=== PATIENT | male | born 1965 | race Caucasian/White ===

== ENCOUNTER 2019-02-01 20:26 | Emergency (ER) | payer BC, SELFPAY ==
[2019-02-01] VITALS (15 sets, daily range): BP systolic 136; BP diastolic 73; PULSE 71–79; RESP 4–36; TEMP 37.4; O2SAT 91–97
[2019-02-01] MEDS: Albuterol/Ipratropium 3 ML UPD VIAL (20:25)
--- NOTE | 2019-02-01 20:34 | ED.GENADUL_ITS ---
Discharge Plan Disposition Patient Disposition: HOME Condition: Improving Discharge Details Chief Complaint: SOB Clinical Impression: COPD with acute exacerbation, Anxiety Primary Care Provider: Ileana Crouch ED Provider: Ginna Cowart Home Meds and New Rx's Prescriptions: New prednisone 20 mg tablet See Rx Instructions .ROUTE .COMPLEX Qty: 12 RF: 0 doxycycline hyclate 100 mg tablet 100 mg PO BID 5 Days Qty: 10 RF: 0 Continued ibuprofen 800 mg tablet 800 mg PO PRN PRNRF: 0 gabapentin 100 mg capsule 100 mg PO PRN RF: 0 lorazepam 0.5 MG tablet 0.5 mg PO BID MDD 2 PRNQty: 10 RF: 0 hydrocodone-acetaminophen 5-325 mg Tablet 1 - 2 tab PO DIRECTED RF: 0 Discharge Instructions Instructions: COPD (Chronic Obstructive Pulmonary Disease) (ED), Anxiety (ED) Additional Instructions: Use the albuterol inhaler as needed and directed for shortness of breath or wheezing. Take the steroids until finished. If you have no relief in symptoms or worsening of symptoms including cough or development of fever, you may start the antibiotics. Call your primary care doctor tomorrow morning to schedule a follow-up appointment for reevaluation and for recheck of your platelets which were noted to be low today on your blood work. Return immediately to the emergency department with any worsening or new concerning symptoms. Return immediately to the emergency department with any worsening or new concerning symptoms per Discharge Data Discharge Physician: Ginna Cowart Medical Decision Making 53-year-old male with a history of COPD and anxiety who presents the ED with a complaint of shortness of breath and cough for the past week, worse over the past few hours. He admits to significant stress at home as he is going through a divorce and about to lose his son. He does admit to chest pain but states this is chronic and daily for several years and no different than usual at this time. EMS noted an oxygen saturation of 100% on room air and normal respiratory rate. He was given a DuoNeb en route. On arrival to ED, patient appears significantly anxious and hyperventilating. Oxygen saturation 100% on room air. Respiratory rate 20s to 30s. Scattered wheezing throughout with mildly diminished breath sounds. No lower extremity edema. No rales or crackles. Suspect likely acute COPD exacerbation in association with anxiety. Considering patient's age and history, will do a cardiac work-up, chest x-ray, DuoNeb and Solu-Medrol as well as a dose of Ativan and reassess. 2114 -- Pt states he feels no better. Breath sounds note improved air movement but with increasing wheezing. Oxygen saturation 97% on room air. Respiratory rate 20s. Patient appears significantly anxious. He states that few days ago he ran out of his Ativan which had been prescribed prn in the past and [place] which he was taking for his left elbow surgery. We will give another dose of Ativan and a 7.5 mg neb and reassess. 2139 -- Pt resting comfortably and denying any shortness of breath at this time after ativan. Patient not yet given 7.5 mg neb. Patient declining any further nebs at this time. Oxygen saturation 95% on room air. 2199 --labs and imaging reviewed. Normal white blood cell count. Platelets 88. Platelets from 124 in 2013. Anion gap 16. Patient given 1 L IV fluids. Troponin negative. BNP 82. Chest x-ray notes pulmonary interstitial changes which could be an atypical infection. Patient still asleep on reevaluation and appears relaxed and comfortable. Denies any complaints of chest pain or shortness of breath at this time. Patient has no complaints of fever with a normal white blood cell count. As he is a smoker with a history of COPD, will send home with a prescription for doxycycline to start if his symptoms do not improve or worsen. We will send him with a prescription for prednisone as well as albuterol inhaler. He is instructed to follow-up with his primary care doctor for reevaluation and to recheck his platelets and to consider whether he needs any further Ativan prescription for his anxiety. Will place patient on care management list to assist patient with any medication issues as he states his insurance did not cover his albuterol inhaler given from the ER in the past. Medical Records Medical records reviewed: Yes I reviewed the patient's medical records. Imaging Data Radiologic Study: Radiologist's impression: XR Chest, 2 Views EXAM DATE/TIME: 02/01/2019 9:13 PM FINDINGS: Lungs: Apical bullous disease. Diffuse interstitial prominence. Pleural space: Unremarkable. No evidence of pneumothorax. Heart/Mediastinum: Unremarkable. Heart size within normal limits for technique. Bones/joints: Old thoracic spine compression fracture. IMPRESSION: Pulmonary interstitial changes could be pulmonary edema or atypical infection. There are some bullous emphysematous changes. Lab Data Lab results reviewed: Yes I reviewed the patient's lab results. Laboratory Tests Range/Units 02/01/19 02/01/19 02/01/19 20:30 20:30 20:30 WBC Cancelled RBC Cancelled Hgb Cancelled Hct Cancelled MCV Cancelled MCH Cancelled MCHC Cancelled RDW Cancelled Plt Count Cancelled MPV Cancelled Immature Gran % Cancelled Neutrophils % Cancelled Band Neutrophils % Cancelled Lymphocytes % Cancelled Atypical Lymphs % Cancelled Monocytes % Cancelled Eosinophils % Cancelled Basophils % Cancelled Metamyelocytes % Cancelled Myelocytes % Cancelled Promyelocytes % Cancelled Absolute Neutrophils Cancelled Absolute Lymphocytes Cancelled Absolute Monocytes Cancelled Absolute Eosinophils Cancelled Absolute Basophils Cancelled Nucleated RBCs Cancelled Differential Comment Cancelled Other Cell Type Cancelled RBC Morphology Cancelled Polychromasia Cancelled Hypochromasia Cancelled Poikilocytosis Cancelled Basophilic Stippling Cancelled Anisocytosis Cancelled Microcytosis Cancelled Macrocytosis Cancelled Spherocytes Cancelled Target Cells Cancelled Tear Drop Cells Cancelled Ovalocytes Cancelled Stomatocytes Cancelled [place] Bodies Cancelled Stumpy Point Cells Cancelled Acanthocytes (Spur) Cancelled Schistocytes Cancelled Sodium (136-145) mmol/L 138 Potassium (3.5-5.1) mmol/L 4.0 Chloride (98-107) mmol/L 100 Carbon Dioxide (21.0-32.0) mmol/L 22.0 Anion Gap (3-11) mmol/L 16.0 H BUN (7-18) mg/dL 11 Creatinine (0.70-1.30) mg/dL 0.90 Estimated GFR/1.73 m2 (mL/min/1.73m2) >= 60.00 Glucose (70-100) mg/dL 83 Calcium (8.5-10.1) mg/dL 9.3 Magnesium (1.8-2.4) mg/dL 2.1 Total Bilirubin (0.2-1.0) mg/dL 1.2 H AST (15-37) U/L 17 ALT (12-78) U/L 16 Alkaline Phosphatase (46-116) U/L 94 Troponin I (0.00-0.06) ng/mL < 0.02 NT-Pro-B Natriuret Pep ( - 299) pg/mL 82 Total Protein (6.4-8.2) g/dL 7.7 Albumin (3.4-5.0) g/dL 4.0 Range/Units 02/01/19 21:23 WBC 8.09 RBC 4.95 Hgb 16.0 Hct 45.0 MCV 90.9 MCH 32.3 MCHC 35.6 RDW 12.9 Plt Count 88 L MPV 11.0 Immature Gran % 0.2 Neutrophils % 51.7 Band Neutrophils % Lymphocytes % 40.8 Atypical Lymphs % Monocytes % 5.7 Eosinophils % 1.0 Basophils % 0.6 Metamyelocytes % Myelocytes % Promyelocytes % Absolute Neutrophils 4.18 Absolute Lymphocytes 3.30 Absolute Monocytes 0.46 Absolute Eosinophils 0.08 Absolute Basophils 0.05 Nucleated RBCs Differential Comment Other Cell Type RBC Morphology Polychromasia Hypochromasia Poikilocytosis Basophilic Stippling Anisocytosis Microcytosis Macrocytosis Spherocytes Target Cells Tear Drop Cells Ovalocytes Stomatocytes [place] Bodies Jay Cells Acanthocytes (Spur) Schistocytes Sodium (136-145) mmol/L Potassium (3.5-5.1) mmol/L Chloride (98-107) mmol/L Carbon Dioxide (21.0-32.0) mmol/L Anion Gap (3-11) mmol/L BUN (7-18) mg/dL Creatinine (0.70-1.30) mg/dL Estimated GFR/1.73 m2 (mL/min/1.73m2) Glucose (70-100) mg/dL Calcium (8.5-10.1) mg/dL Magnesium (1.8-2.4) mg/dL Total Bilirubin (0.2-1.0) mg/dL AST (15-37) U/L ALT (12-78) U/L Alkaline Phosphatase (46-116) U/L Troponin I (0.00-0.06) ng/mL NT-Pro-B Natriuret Pep ( - 299) pg/mL Total Protein (6.4-8.2) g/dL Albumin (3.4-5.0) g/dL ECG Data Attestation: I personally reviewed and interpreted this ECG (s) as follows: Interpretation: Rate of 68, sinus, right bundle branch block. Left anterior fascicular block. No acute ST elevation or depression. QTc 476. QRS 116. HPI General Mode of arrival: EMS . Date/Time Provider Initiated Documentation: 02/01/19 20:32 . Limitations to Documentation: no limitations . Information obtained by: patient . HPI Narrative: Patient is a 53-year-old male with a history of COPD, anxiety and depression who presents the ED with complaint of shortness of breath for the past week and worse over the past few hours tonight. Patient states she has a history of anxiety and believes this is making the symptoms worse tonight. He states he is under a significant amount of stress at this time due to going through a divorce and possibly losing his son. He states he has had a cough that is productive of sputum but he is unsure of the color. He denies any known fever and states he has been eating and drinking normally without any vomiting. He does admit to chronic daily chest pain for several years which she states is usually due to his anxiety. He does admit to chest pain at this time and he states that he feels like this is due to anxiety due to his stress and difficulty breathing. He denies leg pain or swelling, or recent travel. Patient did have a left elbow surgery 2 weeks ago for nerve decompression which he states he has been having once monthly. Related Data Home Medications Medication Instructions Recorded Confirmed lorazepam 0.5 mg PO BID PRN #10 tab-cap MDD 2 12/30/17 02/01/19 gabapentin 100 mg capsule 100 mg PO PRN cap 07/15/18 02/01/19 ibuprofen 800 mg tablet 800 mg PO PRN PRN tab 07/15/18 02/01/19 doxycycline hyclate 100 mg PO BID 5 Days #10 tab 02/01/19 hydrocodone-acetaminophen 1 - 2 tab PO DIRECTED 02/01/19 02/01/19 prednisone See Rx Instructions .ROUTE 02/01/19 .COMPLEX #12 tab Previous Rx's Medication Instructions Recorded doxycycline hyclate 100 mg PO BID 5 Days #10 tab 02/01/19 prednisone See Rx Instructions .ROUTE 02/01/19 .COMPLEX #12 tab Allergies Allergy/AdvReac Type Severity Reaction Status Date / Time No Known Allergies Allergy Unverified 02/01/19 20:56 Review of Systems Review of Systems All systems reviewed & are unremarkable except as noted in HPI and below Constitutional Reports as per HPI, Denies chills and Denies fever(s) Eyes Denies blurry vision ENT Denies dizziness, Denies sore throat and Denies throat swelling Cardiovascular Reports chest pain and Reports dyspnea Respiratory Reports cough and Reports dyspnea Gastrointestinal Denies abdominal pain, Denies diarrhea and Denies vomiting Genitourinary Denies hematuria and Denies dysuria Musculoskeletal Denies back pain and Denies numbness Integumentary/Breasts Denies lesions and Denies rash Neurologic Denies dizziness, Denies focal weakness and Denies numbness Allergic/Immunologic Denies throat swelling [facility] Medical History Tubular adenoma (Resolved) Sleep disturbances (Chronic 01/12/16) Restless legs (Chronic) Migraine (Chronic 08/21/16) Impotence of organic origin (Chronic) Hypotension (Acute 01/12/16) History of tobacco use (Chronic) Fracture of skull (Chronic) Depressive disorder (Chronic) Cluster headache syndrome (Chronic) Closed fracture of rib (Acute 12/05/07) Displaced fracture of neck of fifth metacarpal bone, right hand, subsequent encounter for fracture with routine healing (Acute 07/26/16) Chronic obstructive lung disease (Chronic) Chest pain (Acute) Abnormal weight loss (Acute 12/05/07) Tobacco use (Chronic) Surgical History History of elbow surgery (Acute) Mass on back (Acute) Appendectomy Repair of inguinal hernia Social History Smoking/Tobacco Use Status: Current every day Alcohol Intake: current Alcohol Intake frequency: a few times a week Drug use: Never Substance use type: marijuana Household members: family Housing: house current occupation: [employer] Do you feel safe at home: Yes Do you feel safe in your relationship?: Yes Exam Const General: cooperative and anxious HENMT Head: normal to inspection Face and sinus: normal facial exam Mouth: moist mucous membranes Teeth and gingiva: poor dentition and other (multiple missing teeth) Eyes General: appearance normal, both eyes and all related structures EOM: EOM intact bilaterally Neck Neck: normal visual inspection and No submandibular swelling Lymphatic: no lymphadenopathy noted Chest Chest: normal inspection of the chest and no tenderness Resp Effort & Inspection: able to speak in complete sentences (3-4 word sentences) Auscultation: wheezes Cardio Rate: regular rate Rhythm: regular rhythm GI Inspection: normal to inspection Palpation: soft, not firm, not rigid and nontender Auscultation: normal bowel sounds Male General Exam: Yes normal external exam Back/Spine/Pelvis Thoracic/Lumbar Spine: thoracic and lumbar spine normal to inspection Pelvis: no pain with anterior-posterior compression Skin General skin exam: no rashes or lesions noted Neuro General: alert, awake and oriented x3 Cognition: normal cognition Speech: speech normal Motor: muscle tone normal throughout Sensory Exam: no sensory deficits noted Extrem General: normal to inspection, full ROM, normal capillary refill, no calf tenderness bilaterally and no edema Psych Appearance: grossly normal Mental Status: mental status grossly normal Speech and Movement: speech and movement normal Affect: normal affect
[2019-02-01] MEDS: Albuterol 2.5 MG/3 ML INH SOLN VIAL (20:35)
[2019-02-01] MEDS: methylPREDNISolone SUCC 125 MG VIAL IVP (20:45)
[2019-02-01] MEDS: LORazepam 2 MG/ML VIAL 0.5 MG IVP (20:50)
[2019-02-01 21:14] LABS: ALT 16 U/L (12-78); AST 17 U/L (15-37); Alkaline Phosphatase 94 U/L (46-116); BUN 11 mg/dL (7-18); Bilirubin, Total 1.2 mg/dL (0.2-1.0); Calcium 9.3 mg/dL (8.5-10.1); Chloride 100 mmol/L (98-107); Glucose 83 mg/dL (70-100); Magnesium 2.1 mg/dL (1.8-2.4); Sodium 138 mmol/L (136-145); Total Protein 7.7 g/dL (6.4-8.2)
[2019-02-01 21:17] LABS: Troponin I < 0.02 ng/mL (0.00-0.06)
[2019-02-01] MEDS: LORazepam 2 MG/ML VIAL 1 MG IVP (21:30)
[2019-02-01 21:33] LABS: Abs Immature Grans 0.02 k/cumm (0.0-0.09); Absolute Basophil Count 0.05 k/cumm (0.0-0.2); Absolute Eosinophil Count 0.08 k/cumm (0.0-0.7); Absolute Monocyte Count 0.46 k/cumm (0.11-0.7); Absolute Neutrophil Count 4.18 k/cumm (1.2-6.7); Basophils % 0.6; Immature Grans % 0.2; Lymphocytes % 40.8; Mean Corp. HGB Concentration 35.6 g/dL (32.0-36.0); Mean Corpuscular Hemoglobin 32.3 pg (27.0-33.0); Mean Corpuscular Volume 90.9 fL (80-95); Monocytes % 5.7; Neutrophils % 51.7; RBC 4.95 m/cumm (4.50-6.00); RBC Distribution Width 12.9 % (11.8-14.1); White Blood Cell Count 8.09 k/cumm (4.4-10.8)
[2019-02-01 21:45] LABS: Platelet Count 88 x1000/uL (130-400)
--- NOTE | 2019-02-01 21:45 | DI.RAD_ITS ---
SYMPTOMS/DIAGNOSIS: COUGH, SHORTNESS OF BREATH, ? ACUTE DISEASE CHEST, FRONTAL AND LATERAL VIEWS: Comparison is 02/21/16. The heart size and pulmonary vasculature are within normal limits. There is poor inspiration. No effusions or pneumothoraces are identified. No focal consolidating infiltrates are seen. There are bullae seen in the lungs bilaterally. There is diffuse prominence of the interstitium; this is more prominent compared to the prior examination. This may be due to technique and poor inspiration, but an acute interstitial process or progressive chronic interstitial disease cannot be excluded. Followup as clinically appropriate.
[2019-02-01 21:52] LABS: NT-proBNP 82 pg/mL
[2019-02-01] MEDS: Normal Saline 1,000 ML 1000 ML IV (22:03)
--- NOTE | 2019-02-01 22:04 | DI.VRAD_ITS ---
EXAM: XR Chest, 2 Views EXAM DATE/TIME: 02/01/2019 9:13 PM CLINICAL HISTORY: 53 years old, male; Signs and symptoms; Cough and shortness of breath; Patient HX: Cough and SOB, difficulty breathing while sitting up straight TECHNIQUE: Imaging protocol: XR of the chest, 2 views. COMPARISON: CR CHEST 2 VIEWS PA,LAT 02/21/2016 2:04 PM FINDINGS: Lungs: Apical bullous disease. Diffuse interstitial prominence. Pleural space: Unremarkable. No evidence of pneumothorax. Heart/Mediastinum: Unremarkable. Heart size within normal limits for technique. Bones/joints: Old thoracic spine compression fracture. IMPRESSION: Pulmonary interstitial changes could be pulmonary edema or atypical infection. There are some bullous emphysematous changes. Dictated and Authenticated by: Shen Hutchison MD. Ordering:ARNOLD Chacko MD
--- NOTE | 2019-02-01 22:04 | NUR.NOTE ---
Nursing Note: patient calmer, more relaxed, respirations slower and deeper, sob decreased. family with him.
[2019-02-01] MEDS: Albuterol HFA 8 GM 60 PUFF INH IH (23:03)
[2019-02-01] MEDS: LORazepam 0.5 MG TAB 1.5 MG PO (23:04)
== END 2019-02-01 23:18 | disposition home or self-care (01) ==
PROVIDERS: Emergency Provider Physician Assistant; PCP Nurse Practitioner Gerontology
DX: J44.1 Chronic obstructive pulmonary disease with (acute) exacerbation (principal); F41.9 Anxiety disorder, unspecified; I45.10 Unspecified right bundle-branch block; F17.210 Nicotine dependence, cigarettes, uncomplicated
CPT/HCPCS: 36415; 80053; 93005; 94640; 96361; 96374; 96375; 99285; 71046; 83735; 83880; 84484; 85025; 93010; J2060; J2930; J7613; J7620

== ENCOUNTER 2019-03-27 02:05 | Outpatient (CLI) | payer BC, SELFPAY | END 2019-03-27 02:25 | PROVIDERS: PCP Family Medicine; Visit Provider Family Medicine | DX: R69 Illness, unspecified (principal) | CPT/HCPCS: 36415; 85027 ==

== ENCOUNTER 2019-03-28 09:56 | Outpatient (CLI) | payer BC, SELFPAY ==
[2019-03-28 10:13] LABS: HCT 48.3 % (40.0-50.0); HGB 16.7 g/dL (13.5-17.5); Mean Corp. HGB Concentration 34.6 g/dL (32.0-36.0); Mean Corpuscular Hemoglobin 32.4 pg (27.0-33.0); Mean Corpuscular Volume 93.6 fL (80-95); Mean Platelet Volume 10.7 fL (8.0-11.0); Platelet Count 196 x1000/uL (130-400); RBC 5.16 m/cumm (4.50-6.00); RBC Distribution Width 12.7 % (11.8-14.1); White Blood Cell Count 8.43 k/cumm (4.4-10.8)
== END 2019-03-28 10:16 ==
PROVIDERS: PCP Family Medicine; Visit Provider Family Medicine
DX: D69.6 Thrombocytopenia, unspecified (principal)
CPT/HCPCS: 36415; 85027

== ENCOUNTER 2019-03-31 01:51 | Outpatient (CLI) | payer BC, SELFPAY ==
--- NOTE | 2019-03-31 | PFT_ITS ---
PULMONARY FUNCTION TEST REPORT Patient - Tyler Fabian DATE OF SERVICE March 31, 2019 REQUESTING PROVIDER Tyler Schmitz M.D. INTERPRETATION OF STUDY Spirometry shows severe obstructive airways disease with no significant bronchodilator response. LUNG VOLUMES - Lung volumes show no evidence of restriction. There is mild hyperinflation and air trapping. DIFFUSION CAPACITY- Severely reduced, which is moderately reduced when corrected to alveolar volume. AIRWAY RESISTANCE - Normal. IMPRESSION Severe obstructive airways disease with no significant bronchodilator response. This is associated with mild hyperinflation and air trapping and severe diffusion defect. Though this represents a somewhat suboptimal patient effort for that maneuver. Clinical correlation recommended. When this study was compared to previous one from 07-29-2014, the patient has a substantial 1050 cc decline in FVC. FEV1 has declined by 1320 cc. Livier Salgado M.D. JORI/ T- 04/02/2019
== END 2019-03-31 02:11 ==
PROVIDERS: PCP Family Medicine; Visit Provider Family Medicine
DX: J44.9 Chronic obstructive pulmonary disease, unspecified (principal); F17.210 Nicotine dependence, cigarettes, uncomplicated
CPT/HCPCS: 94060; 94150; 94726; 94729

== ENCOUNTER 2019-11-09 09:41 | Emergency (ER) | payer BC, SELFPAY ==
[2019-11-09 09:45] VITALS: BP 130/42; PULSE 60; RESP 15; TEMP 37.4; O2SAT 97
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
--- NOTE | 2019-11-09 10:26 | DI.RAD_ITS ---
EXAM: XR FOOT RT COMPLETE INDICATION: pain, injury. COMPARISON: No exams were available for comparison TECHNIQUE: 2D digital imaging was performed. FINDINGS: Nondisplaced fracture the diaphysis of the proximal phalanx of the right 2nd toe. No other fracture or dislocation is identified. There is soft tissue swelling of the 2nd toe. No radiopaque foreign b odies are present. There is a moderate-sized spur at the plantar surface of the calcaneus. There is a small enthesophyte at the Achilles insertion site. IMPRESSION: Nondisplaced fracture of the diaphysis of the proximal phalanx of the right 2nd toe. The findings we re discussed with the emergency department on the date of the examination.
== END 2019-11-09 11:31 | disposition home or self-care (01) ==
PROVIDERS: Emergency Provider Physician Assistant; PCP Family Medicine
DX: S92.514A Nondisplaced fracture of proximal phalanx of right lesser toe(s), initial encounter for closed fracture (principal); W18.31XA Fall on same level due to stepping on an object, initial encounter; J44.9 Chronic obstructive pulmonary disease, unspecified
CPT/HCPCS: 28510; 73630

== ENCOUNTER 2019-11-26 09:30 | Outpatient (CLI) | payer BC, SELFPAY ==
--- NOTE | 2019-11-26 08:45 | DI.RAD_ITS ---
EXAM: XR FOOT RT COMPLETE INDICATION: F/U 2ND TOE FRACTURE. COMPARISON: XR FOOT RT COMPLETE from 11/09/2019 TECHNIQUE: 2D digital imaging was performed. FINDINGS: There has been no change in the alignment of the fracture of the proximal phalanx of the 2nd toe. N o new abnormalities are seen. DATA REPOSITORY: RADIATION DOSE DELIVERED:
== END 2019-11-26 09:50 ==
PROVIDERS: PCP Family Medicine; Visit Provider Student in an Organized Health Care Education/Training Program
DX: S92.514A Nondisplaced fracture of proximal phalanx of right lesser toe(s), initial encounter for closed fracture (principal)
CPT/HCPCS: 73630

== ENCOUNTER 2019-12-17 09:51 | Outpatient (CLI) | payer BC, SELFPAY ==
--- NOTE | 2019-12-17 09:49 | DI.RAD_ITS ---
EXAM: XR TOE RT SECOND CLINICAL HISTORY: f/u fracture. TECHNIQUE: 2D digital imaging was performed. COMPARISON: XR FOOT RT COMPLETE from 11/26/2019 FINDINGS: There has been continued healing of the previously noted fracture of the proximal phalanx of the 2nd toe. No new abnormalities are seen. DATA REPOSITORY: RADIATION DOSE DELIVERED:
== END 2019-12-17 10:11 ==
PROVIDERS: PCP Family Medicine; Visit Provider Student in an Organized Health Care Education/Training Program
DX: S92.514D Nondisplaced fracture of proximal phalanx of right lesser toe(s), subsequent encounter for fracture with routine healing
CPT/HCPCS: 73660

== ENCOUNTER 2020-02-11 07:24 | Outpatient (CLI) | payer BC, SELFPAY ==
--- NOTE | 2020-02-11 07:15 | ETT_ITS ---
APPROVED REPORT Exam: Exercise Treadmill Patient Location: Out-Patient Room/Bed: Stress Nurse: Arleen Bailey RN BMI: 22.19 Baseline Rhythm: Sinus Bradycardia Indications: Patient reports intermittent left sided sharp chest pain for the past 4-5 weeks. He stat es the chest pain happens 5 to 6 times per day and happens with both rest and activity lasting from s econds to 10 minutes, recently with radiation to left shoulder. Medical History Medical History: Anxiety, Depression, Panic Disorder, PTSD. Cardiac Medications: None, Allergies: No known drug allergies Cardiac Risk Factors: FHX of CAD, COPD, Smoking Previous Cardiac Procedures: None Pretest Chest Pain Characteristics: Intermittent left sided chest pain this morning before stress lian ting. Exercise History: Physically active Physical Disabilities: None Lung Sounds: Clear to auscultation Heart Sounds: Regular Stress Test Details Test: Exercise stress testing was performed using a Danny protocol. Rest Stress HR Resting HR Supine: 56 bpm Max Heart Rate (APMHR): 165 bpm Resting HR Standin bpm Target HR (85% APMHR): 140 bpm Max HR Achieved: 104 bpm % of APMHR: 63 HR response to stress: Blunted HR response to stress BP Resting BP Supine: 120/64 mmHg Resting BP Standin/60 mmHg Max BP: 152/68 mmHg BP response to stress: Normal blood pressure response to stress. ECG Resting ECG: Sinus Bradycardia Clinical Reason for Termination: Shortness of Breath. Patient did not meet target heart rate. Stress Symptoms: Brief sharp left sided chest pain (3/10) prior to starting exercise portion of lian t. Exercise duration: 11 min23 sec Highest Stage Reached: Stage 4: 4.2 mph at 16% grade. Exercise capacity: 13.48 METs Functional Capacity: Above average capacity Stress ECG Conclusion 1. Electrocardiogram was normal. Patient exercised on the Danny protocol and completed a workload of 13.48 METS 2. Normal blood pressure response to exercise. Blunted heart rate response to exercise. The patient achieved a peak heart rate of 104 which was 63% of maximal predicted for age 3. Electrocardiographically the test was nondiagnostic due to inadequate heart rate 4. There were no significant dysrhythmias 5. The Galdamez treadmill score is 11 which would be low risk Stress Test Summary STAGE Time (mins) Speed (mph) Grade (%) HR BP SYMPTOMS METS Supine 56 120/64 Standing 63 118/60 1 3 1.7 10 76 126/62 4.6 2 6 2.5 12 88 140/60 7 3 9 3.4 14 93 144/58 10.2 1 min recovery 75 152/68 3 min recovery 59 144/66 6 min recovery 65 128/62
== END 2020-02-11 07:44 ==
PROVIDERS: PCP Family Medicine; Visit Provider Family Medicine
DX: R07.89 Other chest pain (principal); F41.8 Other specified anxiety disorders; F43.10 Post-traumatic stress disorder, unspecified; Z82.49 Family history of ischemic heart disease and other diseases of the circulatory system
CPT/HCPCS: 93017

== ENCOUNTER 2023-08-09 09:35 | Outpatient (CLI) | payer MEDICAID, SELFPAY ==
[2023-08-09 09:06] LABS: Abs Immature Grans 0.03 10^3/uL (0.0-0.06); Absolute Basophil Count 0.08 10^3/uL (0.0-0.2); Absolute Eosinophil Count 0.37 10^3/uL (0.0-0.7); Absolute Lymphocyte Count 3.09 10^3/uL (1.2-3.4); Absolute Monocyte Count 0.55 10^3/uL (0.1-0.8); Absolute Neutrophil Count 4.59 10^3/uL (1.2-6.7); Basophils % 0.9; Eosinophils % 4.2; HCT 49.1 % (40.0-50.0); HGB 16.6 g/dL (13.5-17.5); Immature Grans % 0.3; Lymphocytes % 35.5; MCH 30.7 pg (27.0-33.0); MCHC 33.8 % (32.0-36.0); MCV 91 fL (80-95); MPV 10.4 fL (8.0-11.0); Monocytes % 6.3; Neutrophils % 52.8; Platelet Count 204 10^3/uL (130-400); RDW 12.2 % (11.8-14.1); RDW-SD 40.4 fL; WBC 8.71 10^3/uL (4.4-10.8)
[2023-08-09 10:24] LABS: Hemoglobin A1C 5.4 % (<5.7)
[2023-08-09 10:29] LABS: ALT 19 U/L (16-63); AST 19 U/L (15-37); Albumin 3.8 g/dL (3.4-5.0); Alkaline Phosphatase 105 U/L (46-116); Anion Gap 10.4 mmol/L (3-11); BUN 8 mg/dL (7-18); Bilirubin, Total 0.7 mg/dL (0.2-1.0); CO2 27.6 mmol/L (21.0-32.0); Calcium 9.4 mg/dL (8.5-10.1); Calculated LDL 132 mg/dL (<100); Chloride 101 mmol/L (98-107); Cholesterol 209 mg/dL (<200); Glucose 104 mg/dL (74-106); HDL Cholesterol 55 mg/dL (40-60); Potassium 3.7 mmol/L (3.5-5.1); Sodium 139 mmol/L (136-145); TSH (W/Ref FT4) 2.13 uIU/mL (0.36-3.74); Total Protein 7.8 g/dL (6.4-8.2); Triglyceride 114 mg/dL (<150); Vitamin B12 363 pg/mL (193-986)
[2023-08-12 10:43] LABS: Hepatitis B Surface Ag Negative (Negative)
[2023-08-12 11:01] LABS: Hepatitis C Ab w Rflx HCV PCR Negative (Negative)
[2023-08-12 12:27] LABS: Hepatitis B Surface Ab Negative (See Note)
[2023-08-12 12:39] LABS: Hep B Core Antibody Negative (Negative)
[2023-08-12 14:26] LABS: HIV-1/2 Ag & Ab Screen Negative (Negative)
== END 2023-08-09 09:36 | disposition home or self-care (01) ==
LOC: LBO 09:36
PROVIDERS: PCP Nurse Practitioner Family; Visit Provider Registered Nurse
DX: F32.1 Major depressive disorder, single episode, moderate (principal); Z79.899 Other long term (current) drug therapy
CPT/HCPCS: 36415; 80053; 80061; 82306; 86704; 86706; 86803; 87340; 87389; 82607; 83036; 84443; 85025

== ENCOUNTER 2023-12-23 20:49 | Emergency (ER) | payer MEDICARE, MEDICAID, SELFPAY ==
[2023-12-23] VITALS (12 sets, daily range): BP systolic 121–123; BP diastolic 54–64; PULSE 54–66; RESP 16–21; TEMP 36.3; O2SAT 93–99
--- NOTE | 2023-12-23 20:45 | RT.EKG_ITS ---
APPROVED REPORT Exam: Resting ECG Reason for Exam: sob Patient Location: E HR:56 bpm ECG Measurements Heart Rate 56 AXIS MS 156 P 65 QRSd 116 QRS -56 QT 460 T 69 QTc 443 Conclusion Sinus bradycardia 56 normal axis no stemi
[2023-12-23 21:25] LABS: Abs Immature Grans 0.03 10^3/uL (0.0-0.06); Absolute Basophil Count 0.06 10^3/uL (0.0-0.2); Absolute Eosinophil Count 0.38 10^3/uL (0.0-0.7); Absolute Lymphocyte Count 3.69 10^3/uL (1.2-3.4); Absolute Monocyte Count 0.58 10^3/uL (0.1-0.8); Absolute Neutrophil Count 4.38 10^3/uL (1.2-6.7); Basophils % 0.7; Eosinophils % 4.2; HCT 45.2 % (40.0-50.0); HGB 15.4 g/dL (13.5-17.5); Immature Grans % 0.3; Lymphocytes % 40.5; MCHC 34.1 % (32.0-36.0); MCV 94 fL (80-95); Monocytes % 6.4; Neutrophils % 47.9; RBC 4.81 10^6/uL (4.36-5.78); RDW 12.5 % (11.8-14.1); RDW-SD 43.8 fL; WBC 9.12 10^3/uL (4.4-10.8)
--- NOTE | 2023-12-23 21:29 | DI.CT_ITS ---
Exam(s) CT HEAD WO EXAM: CT HEAD WO CLINICAL HISTORY: ams. TECHNIQUE: Imaging Protocol: Axial computed tomography images with coronal and sagittal reformatted images were created and reviewed COMPARISON: CT HEAD WITHOUT CONTRAST from 07/08/2017 FINDINGS: There are no skull fractures. There is no fluid in the visualized paranasal sinuses. There is no evidence of intracranial hemorrhage, mass effect, or shift of midline structures. There are no extra-axial fluid collections. The ventricles are not enlarged or shifted and there is no blo od within the ventricular system nor within the basal cisterns. IMPRESSION: No acute intracranial findings on this noninfused CT scan of the brain. RADIATION DOSE DELIVERED: Total DLP DATA REPOSITORY: All CT scans at this facility are submitted to the National Radiology Data Registry (NRDR) Dose Index Registry (DIR) with the [employer] (ACR). RADIATION OPTIMIZATION: All CT scans at this facility use at least one of these dose optimization te chniques: automated exposure control; mA and/or kV adjustment per patient size (includes targeted exa ms where dose is matched to clinical indication); or iterative reconstruction.
--- NOTE | 2023-12-23 21:46 | DI.VRAD_ITS ---
PROCEDURE INFORMATION: Exam: CT Head Without Contrast Exam date and time: 12/23/2023 9:24 PM Age: 58 years old Clinical indication: Patient HX: AMS, difficulty retrieving words, stabbing head pain TECHNIQUE: Imaging protocol: Computed tomography of the head without contrast. Radiation optimization: All CT scans at this facility use at least one of these dose optimization techniques: automated exposure control; mA and/or kV adjustment per patient size (includes targeted exams where dose is matched to clinical indication); or iterative reconstruction. COMPARISON: CT HEAD WITHOUT CONTRAST 07/08/2017 12:15 PM FINDINGS: Brain: Cerebral sulci show bilateral symmetry with no supratentorial mass or mass effect detected. Brainstem and cerebellum are unremarkable. There is no evidence of acute transcortical infarction or recent intracranial hemorrhage. Cerebral ventricles: No midline shift or hydrocephalus is seen. Paranasal sinuses: Scattered bilateral ethmoidal mucosal densities are evident. Mastoid air cells: Grossly clear bilaterally. Bones/joints: Bony calvarium and skull base are intact and no acute fractures are detected. Soft tissues: Unremarkable. IMPRESSION: No evidence of acute transcortical infarction, recent intracranial hemorrhage or hydrocephalus. No acute intracranial process is detected. Dictated and Authenticated by: Isaac Vernon MD. Ordering:[facility] Hailey Martinez MD
[2023-12-23 21:53] LABS: Albumin 3.7 g/dL (3.4-5.0); Alkaline Phosphatase 88 U/L (46-116); Anion Gap 11.4 mmol/L (3-11); BUN 11 mg/dL (7-18); Bilirubin, Total 0.4 mg/dL (0.2-1.0); CO2 26.6 mmol/L (21.0-32.0); CREATININE 0.9 mg/dL (0.70-1.30); Calcium 8.3 mg/dL (8.5-10.1); Chloride 106 mmol/L (98-107); Estimated GFR 98.38 (mL/min/1.73m2); Glucose 106 mg/dL (74-106); Magnesium 2.3 mg/dL (1.8-2.4); Potassium 3.7 mmol/L (3.5-5.1); Sodium 144 mmol/L (136-145); TSH (W/Ref FT4) 1.82 uIU/mL (0.36-3.74); Total Protein 7.2 g/dL (6.4-8.2)
[2023-12-23 21:55] LABS: ETHANOL BLOOD < 3.0 mg/dL (<10)
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
[2023-12-23 22:01] LABS: Diff Comment PLT Morph Reviewed; RBC Morphology Normal
[2023-12-23 22:14] LABS: AST 10 U/L (15-37)
[2023-12-23 22:48] LABS: Bilirubin Negative (Negative); Blood Negative (Negative); Clarity Clear (Clear); Glucose Negative (Negative); Ketones Negative (Negative); Leukocyte Esterase Negative (Negative); Nitrite Negative (Negative); Specific Gravity >= 1.030 (1.005-1.025); Urobilinogen 0.2 mg/dL (Up to 0.2); pH 5.5 (5-8)
[2023-12-23 22:53] LABS: ALT 17 U/L (16-63)
[2023-12-23 23:05] LABS: *AMPHETAMINES SCREEN URINE Positive (Negative); *BARBITURATES SCREEN URINE Negative (Negative); *BENZODIAZEPINES SCREEN URINE Negative (Negative); Cannabinoids THC Positive (Negative); Cocaine Screen,Urine Negative (Negative); METHADONE URINE SCREEN Negative (Negative); OPIATES URINE SCREEN Negative (Negative)
[2023-12-23 23:07] LABS: Tricyclic Antidepressants Negative (Negative)
== END 2023-12-23 22:50 | disposition home or self-care (01) ==
PROVIDERS: Emergency Provider Emergency Medicine; PCP Nurse Practitioner Family
DX: R41.82 Altered mental status, unspecified (principal); T50.995A Adverse effect of other drugs, medicaments and biological substances, initial encounter; F32.A Depression, unspecified; J44.9 Chronic obstructive pulmonary disease, unspecified; F17.210 Nicotine dependence, cigarettes, uncomplicated; Z91.148 Patient's other noncompliance with medication regimen for other reason; Z79.899 Other long term (current) drug therapy
CPT/HCPCS: 80053; 80307; 93005; 99284; 70450; 80320; 81003; 83735; 84443; 85025; 93010

== ENCOUNTER 2024-02-04 05:47 | Outpatient (CLI) | payer MEDICARE, MEDICAID, SELFPAY ==
[2024-02-04 12:22] LABS: Calculated LDL 86 mg/dL (<100); Cholesterol 160 mg/dL (<200); HDL Cholesterol 52 mg/dL (40-60); TSH (W/Ref FT4) 1.87 uIU/mL (0.36-3.74); Triglyceride 113 mg/dL (<150)
[2024-02-11 18:06] LABS: Testosterone, Free 11.7 ng/dL (3.87-14.7); Testosterone, Total 790 ng/dL (240-950)
== END 2024-02-04 05:48 | disposition home or self-care (01) ==
PROVIDERS: PCP Nurse Practitioner Family; Visit Provider Nurse Practitioner Family
DX: N52.9 Male erectile dysfunction, unspecified (principal); E78.2 Mixed hyperlipidemia
CPT/HCPCS: 36415; 80061; 84153; 84402; 84403; 84443

== ENCOUNTER 2024-06-29 12:55 | Emergency (ER) | payer MEDICARE, MEDICAID, SELFPAY ==
[2024-06-29] VITALS (9 sets, daily range): BP systolic 138–190; BP diastolic 67–86; PULSE 57–74; RESP 20–39; TEMP 36.3; O2SAT 98
--- NOTE | 2024-06-29 12:45 | RT.EKG_ITS ---
APPROVED REPORT Exam: Resting ECG Reason for Exam: flank pain Patient Location: E HR:71 bpm ECG Measurements Heart Rate 71 AXIS AL 148 P 65 QRSd 106 QRS 35 QT 417 T 50 QTc 454 Conclusion Sinus rhythm...normal P axis, V-rate 60- 99 Probable left atrial enlargement...P >50mS, <-0.10mV V1
--- NOTE | 2024-06-29 13:15 | DI.CT_ITS ---
Exam(s) CT CHEST PE CTA EXAM: CT CHEST PE CTA CLINICAL HISTORY: left chest pain. TECHNIQUE: Imaging Protocol: Axial CT angiography was performed with multi-slice acquisition and mu lti-planar and/or 3D reconstructions. CONTRAST MATERIAL: Intravenous: Omnipaque 350 contrast volume:100 mL COMPARISON: CT RENAL COLIC WO CONTRAST from 12/01/2007 CR XR CHEST 2V PA LATERAL from 02/01/2019 FINDINGS: Tracheobronchial tree: Patent where visualized. No bronchiectasis. Pulmonary parenchyma: Moderately severe emphysematous changes are present in the lungs. No focal con solidating infiltrates are present. There is scarring in the lung apices. No pulmonary nodules are seen. Pulmonary Arteries: No evidence of filling defect to suggest pulmonary emboli. Mediastinum and Isaura: No dominant adenopathy or fluid collection. The esophagus is unremarkable. Visualized thyroid gland: Unremarkable. Pleura: No effusion or pneumothorax. Heart: The heart is at the upper limits of normal in size. Coronary artery calcifications are presen t. No pericardial effusion. Aorta: Thoracic aorta non-dilated. No evidence of dissection. Atherosclerotic calcification is presen t. Upper abdomen: Unremarkable. Soft tissues: Unremarkable. Bones: Within normal limits for the patient's age. IMPRESSION: 1. No evidence of pulmonary embolism, thoracic aortic dissection or aneurysm. 2. Moderately severe emphysematous changes in the lungs. 3. No focal consolidating infiltrates. RADIATION DOSE DELIVERED: 67.03mGy.cm Total DLP DATA REPOSITORY: All CT scans at this facility are submitted to the National Radiology Data Registry (NRDR) Dose Index Registry (DIR) with the [employer] (A[employer]). RADIATION OPTIMIZATION: All CT scans at this facility use at least one of these dose optimization te chniques: automated exposure control; mA and/or kV adjustment per patient size (includes targeted exa ms where dose is matched to clinical indication); or iterative reconstruction.
[2024-06-29] MEDS: HYDROmorphone 2 MG/ML SYR 1 MG IVP (13:36)
[2024-06-29 13:38] LABS: Abs Immature Grans 0.02 10^3/uL (0.0-0.06); Absolute Basophil Count 0.05 10^3/uL (0.0-0.2); Absolute Eosinophil Count 0.08 10^3/uL (0.0-0.7); Absolute Monocyte Count 0.51 10^3/uL (0.1-0.8); Absolute Neutrophil Count 5.18 10^3/uL (1.2-6.7); Basophils % 0.6 %; HCT 41.8 % (40.0-50.0); Immature Grans % 0.2 %; Lymphocytes % 28.3 %; MCH 32.7 pg (27.0-33.0); MCHC 33.5 % (32.0-36.0); MCV 98 fL (80-95); Monocytes % 6.3 %; Neutrophils % 63.6 %; RBC 4.28 10^6/uL (4.36-5.78); RDW 11.9 % (11.8-14.1); WBC 8.14 10^3/uL (4.4-10.8)
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
[2024-06-29] MEDS: Normal Saline - Diluent 50 ML VIAL IJ (13:46)
[2024-06-29] MEDS: Omnipaque 350 MG/ML 100 ML BTL IJ (13:47)
[2024-06-29 13:50] LABS: Diff Comment Diff Reviewed; RBC Morphology Normal
[2024-06-29 14:04] LABS: ALT 18 U/L (16-63); AST 13 U/L (15-37); Albumin 3.8 g/dL (3.4-5.0); Alkaline Phosphatase 98 U/L (46-116); BUN 13 mg/dL (7-18); Bilirubin, Total 0.83 mg/dL (0.2-1.0); CREATININE 0.8 mg/dL (0.70-1.30); Chloride 102 mmol/L (98-107); Estimated GFR 101.32 (mL/min/1.73m2); Glucose 89 mg/dL (74-106); Magnesium 2.2 mg/dL (1.8-2.4); Potassium 4.3 mmol/L (3.5-5.1); Sodium 138 mmol/L (136-145); Total Protein 7.4 g/dL (6.4-8.2); Troponin I 7 ng/L (<or=76)
[2024-06-29] MEDS: LORazepam 2 MG/ML VIAL 1 MG IVP (14:34)
[2024-06-29] MEDS: Ketorolac 15 MG/ML VIAL IVP (14:34)
[2024-06-29] MEDS: Normal Saline 500 ML IV (14:34)
[2024-06-29 14:51] LABS: Troponin I 8 ng/L (<or=76)
[2024-06-29] MEDS: Lidocaine 5% Patch 1 PATCH TP (15:00)
== END 2024-06-29 16:00 | disposition home or self-care (01) ==
PROVIDERS: Emergency Provider Student in an Organized Health Care Education/Training Program; PCP Nurse Practitioner Family
DX: R07.89 Other chest pain (principal); F32.A Depression, unspecified; F17.200 Nicotine dependence, unspecified, uncomplicated
CPT/HCPCS: 36415; 71275; 80053; 93005; 96361; 96374; 96375; 99285; 83735; 84484; 85025; 93010; 99283; J1170; J1885; J2060; J3490